=== PATIENT | female | born 1965 | race Caucasian/White ===

== ENCOUNTER 2016-07-21 12:52 | Emergency (ER) | payer OTHER ==
[2016-07-21 13:07] VITALS: BP 161/91; TEMP 97.4; BMI 36.6
--- NOTE | 2016-07-21 14:01 | ED.PDOC ---
General ED Provider: Dr. KARLI COMBS Chief Complaint: Respiratory Complaint Stated Complaint: Feels like allergic to something at work; also weak over past several months. Time Seen by Physician: 13:45 Mode of Arrival: Walk-In Information Source: Patient Nursing and Triage Documentation Reviewed and Agree: Yes Review of Systems - Review Of Systems Constitutional: Reports: Weakness (chronic over past year) Respiratory: Reports: Short of air (Feels like throat swelling at times while at work) All Other Systems: Reviewed and Negative Past Medical History - Past Medical History Previously Healthy: Yes Endocrine: Reports: None Cardiovascular: Reports: None Respiratory: Reports: Asthma Hematological: Reports: None Gastrointestinal: Reports: Other (Gastritis) Genitourinary: Reports: None Neuro/Psych: Reports: None Musculoskeletal: Reports: None Cancer: Reports: None Last Menstrual Period: NOW - Surgical History General Surgical History: Reports: Other (Cervical spine X2) - Family History Family History: Reports: None - Social History Smoking Status: Former smoker Hx Substance Use: No Alcohol Screening: None Physical Exam - Physical Exam Appearance: Well-appearing Eyes: GENEVIEVE, EOMI, Conjunctiva clear ENT: Ears normal, Nose normal, Oropharynx normal Neck: Supple Respiratory: Airway patent, Breath sounds clear, Respirations nonlabored Cardiovascular: RRR, Pulses normal GI/: Soft, Nontender Musculoskeletal: Normal strength, ROM intact, No edema Skin: Warm, Dry, Normal color Neurological: Sensation intact, Motor intact, Alert, Oriented Psychiatric: Affect appropriate, Mood appropriate Interpretation - Radiology Interpretation Radiology Interpretation By: Radiologist Radiology Results: No acute changes Exam Interpreted: CXR Xray Comments: No acute process Critical Care Note - Critical Care Note Total Time (mins): 15 Course - Course Hematology/Chemistry: 07/21/16 14:10 07/21/16 14:10 Orders, Labs, Meds: Lab Review 07/21/16 14:10 WBC 9.20 RBC 4.58 Hgb 11.5 L Hct 36.1 L MCV 78.8 L MCH 25.1 L MCHC 31.9 RDW Coeff of Yoanna 14.9 H Plt Count 319 Immature Gran % (Auto) 0.9 Neut % (Auto) 53.2 Lymph % (Auto) 31.8 [place] % (Auto) 9.0 Eos % (Auto) 4.3 Baso % (Auto) 0.8 Immature Gran # (Auto) 0.1 Neut # 4.9 Lymph # 2.9 [place] # 0.8 Eos # 0.4 Baso # 0.1 ESR 37 H Sodium 141 Potassium 3.6 Chloride 105 Carbon Dioxide 27 Anion Gap 12.6 BUN 12 Creatinine 0.78 Estimated GFR (MDRD) 78.00 BUN/Creatinine Ratio 15.38 Glucose 89 Calcium 9.4 Total Bilirubin 0.16 AST 15 ALT 18 Alkaline Phosphatase 90 Total Protein 7.5 Albumin 3.5 Globulin 4.0 Albumin/Globulin Ratio 0.88 Orders Category Date Time Status CBC W/ AUTO DIFF Stat LAB 07/21/16 14:10 Completed COMPREHENSIVE METABOLIC PANEL Stat LAB 07/21/16 14:10 Completed ESR Stat LAB 07/21/16 14:10 Completed Dexamethasone 4 mg/ml Inj [Decadron 4 mg/ml Sdv] MEDS 07/21/16 14:00 Discontinued 4 mg IM ONCE STA CHEST, 2 VIEWS PA & LAT Stat RADS 07/21/16 13:58 Completed Medications Discontinued Medications Generic Name Dose Route Start Last Admin Trade Name Freq PRN Reason Stop Dose Admin Dexamethasone Sodium Phosphate 4 mg 07/21/16 14:00 07/21/16 14:21 Decadron 4 Mg/Ml Sdv IM 07/21/16 14:01 4 mg ONCE STA Administration Vital Signs: Temp Pulse Resp BP Pulse Ox 07/21/16 12:55 97.4 F L 78 20 161/91 H 97 Departure - Departure Time of Disposition: 15:14 Disposition: HOME SELF-CARE Discharge Problem: Allergy Qualifiers: Encounter type: initial encounter Qualifier Code: (T78.40XA) Allergy, unspecified, initial encounter Instructions: Allergies (ED) Condition: Good Pt referred to PMD for follow-up: Yes (Call for appointment) Additional Instructions: Take medication (prednisone as prescribed); follow up with primary care - call next week for appointment; let them know your "sed rate" was slightly elevated. Prescriptions: Prednisone 20 mg PO DAILYWM #14 tablet Allergies/Adverse Reactions: Allergies No Known Allergies Allergy (Unverified 07/21/16 12:54) Home Medications: Ambulatory Orders Prednisone 20 mg PO DAILYWM #14 tablet 07/21/16
[2016-07-21 14:21] LABS: BASOPHILS # (AUTO) 0.1 K/uL (0-0.2); BASOPHILS % (AUTO) 0.8 % (0.0-3.0); EOSINOPHILS # (AUTO) 0.4 K/ul (0.0-0.7); EOSINOPHILS % (AUTO) 4.3 % (0.0-7.0); HEMATOCRIT 36.1 % (37.0-47.0); HEMOGLOBIN 11.5 g/dl (12.0-16.0); IMMATURE GRANULOCYTE % (AUTO) 0.9 % (0.0-5.0); LYMPHOCYTES # (AUTO) 2.9 K/uL (0.60-3.4); LYMPHOCYTES % (AUTO) 31.8 (10.0-50.0); MEAN CORPUSCULAR HEMOGLOBIN 25.1 pg (27.0-31.0); MEAN CORPUSCULAR HGB CONC 31.9 (31.8-35.4); MEAN CORPUSCULAR VOLUME 78.8 fl (81.0-99.0); MONOCYTES # (AUTO) 0.8 K/uL (0.4-2.0); NEUTROPHILS # (AUTO) 4.9 K/ul (2.0-6.9); NEUTROPHILS % (AUTO) 53.2; PLATELET COUNT 319 10^3/uL (140-440); RED BLOOD COUNT 4.58 10^6/ul (4.20-5.40)
[2016-07-21] MEDS: DECADRON 4 MG/ML SDV IM STA (14:21)
--- NOTE | 2016-07-21 14:33 | DI ---
EXAM: PA and lateral views of the chest HISTORY: Shortness of breath COMPARISON: Chest x-ray 12/03/2009 FINDINGS: The cardiomediastinal silhouette is normal. There is no pneumothorax or pleural effusion . There is no consolidation, nodule or mass. The osseous structures demonstrate mild degenerative disease and cervical fusion hardware. There are surgical clips noted in the right upper quadrant. IMPRESSION: No acute cardiopulmonary process
[2016-07-21 14:51] LABS: ALBUMIN 3.5 g/dL (3.4-5.0); ALBUMIN/GLOBULIN RATIO 0.88; ANION GAP 12.6; BILIRUBIN,TOTAL 0.16 mg/dL (0.00-1.20); BUN/CREATININE RATIO 15.38; CALCIUM 9.4 mg/dL (8.2-10.2); CREATININE 0.78 mg/dL (0.60-1.30); POTASSIUM 3.6 mmol/L (3.5-5.10); TOTAL PROTEIN 7.5 g/dL (6.4-8.2)
[2016-07-21 15:09] LABS: ERYTHROCYTE SEDIMENTATION RATE 37 mm/hr (0-20); ESR INTERNAL QC INTERNAL QC VALID
== END 2016-07-21 15:31 | disposition home or self-care (01) ==
LOC: ED 12:52
DX: T78.40XA Allergy, unspecified, initial encounter (principal); R70.0 Elevated erythrocyte sedimentation rate
CPT/HCPCS: 36415; 80053; 85025; 85651; 96372; 99283